=== PATIENT | female | born 1980 | race Caucasian/White ===

== ENCOUNTER 2017-06-23 13:25 | Emergency (ER) | payer BC ==
[~2017-06-23] VITALS: Ht 162.6 cm; Wt 61.2 kg
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
[2017-06-23] MEDS ORDERED: NAPROXEN 500 MG TABLET PO ONE (14:00)
[2017-06-23] MEDS ORDERED: NAPROXEN 250 MG TABLET ONE (14:08)
[2017-06-23 15:23] VITALS: BP 130/80
--- NOTE | 2017-06-23 15:23 | NUR ---
Patient discharged to home in stable condition. Written and verbal after care instructions given. Patient verbalizes understanding of instruction.
== END 2017-06-23 15:24 | disposition home or self-care (01) ==
LOC: ER 13:29
DX: S20.219A Contusion of unspecified front wall of thorax, initial encounter (principal); S80.02XA Contusion of left knee, initial encounter; S80.01XA Contusion of right knee, initial encounter; V43.52XA Car driver injured in collision with other type car in traffic accident, initial encounter; Y93.89 Activity, other specified; Y92.89 Other specified places as the place of occurrence of the external cause; Y99.8 Other external cause status
CPT/HCPCS: 71111-TC; 71120-TC; A4606; Z7610